=== PATIENT | male | born 1990 | race Caucasian/White ===

== ENCOUNTER 2016-07-20 05:42 | Emergency (ER) | payer BC ==
--- NOTE | 2016-07-20 08:02 | DIAGNOSTIC IMAGING REPORT ---
PROCEDURE: US ABDOMEN ULTRASOUND-LIMITED INDICATION: RUQ PAIN, initial encounter TECHNIQUE: Cunningham scale and color Doppler sonographic images of the abdomen were obtained. COMPARISON: None. FINDINGS: Normal gallbladder and CBD (3 mm. Normal liver. Normal pancreas as visual aorta and IVC are patent. Normal hepatopetal flow. Normal right kidney measures 11.1 cm. IMPRESSION: 1. Negative right upper quadrant ultrasound
--- NOTE | 2016-07-20 08:18 | ED CLINICAL REPORT ---
Clinical Report - Physicians/Mid Levels [facility] [address] [place] [address] 07/20/2016 5:46 Patient: ANGEL IGLESIAS Time Seen: 06:02. Arrived- By private vehicle. Historian- patient. HISTORY OF PRESENT ILLNESS Chief Complaint: ABDOMINAL PAIN. This started last night and is still present. It was abrupt in onset and has been intermittent and waxing/waning. At its maximum, severity described as 8 / 10. When seen in the E.D., severity described as 6 / 10. Modifying factors. Not worsened by anything. Not relieved by anything. It is described as "pulsing" and it is described as located in the right upper quadrant and radiating to the upper back. No nausea, loss of appetite, vomiting or diarrhea. Similar symptoms previously: None. REVIEW OF SYSTEMS No constipation, black stools, difficulty with urination, pain with urination or urinary frequency. No bloody stools. Last bowel movement: yesterday. All systems otherwise negative, except as recorded above. PAST HISTORY PCP - None. Medications: None. Allergies: No Known Drug Allergy. SOCIAL HISTORY Never smoker. Occasional alcohol use. No drug use. FAMILY HISTORY Hypertension in first-degree relative (father). ADDITIONAL NOTES The nursing notes have been reviewed. PHYSICAL EXAM Vital Signs: 07/20/2016 05:57 BP: 132/75. HR: 73. RR: 16. O2 saturation: 99%. Temp: 98.2 F. Have been reviewed. Appearance: Alert. Eyes: Pupils equal, round and reactive to light. ENT: Pharynx normal. Neck: Normal inspection. Neck supple. CVS: Normal heart rate and rhythm. Heart sounds normal. Respiratory: No respiratory distress. Breath sounds normal. Abdomen: Soft and nontender. Bowel sounds normal. No organomegaly. No mass. Back: Normal inspection. Skin: Skin warm and dry. Normal skin color. Normal skin turgor. Extremities: Extremities exhibit normal ROM. No lower extremity edema. Neuro: No motor deficit. No sensory deficit. LABS, X-RAYS, AND EKG Abdominal Sonogram: No acute changes. (discussed with the tattoo technician). The study was independently viewed by me. Laboratory Tests: UA-Culture if indicated: (OLLIE: 07/20/2016 06:18) ( MsgRcvd 07/20/2016 06:33) Final results Test Result Flag Units (Reference) URINE COLOR YELLOW URINE APPEARANCE CLEAR URINE GLUCOSE NEGATIVE (NEGATIVE) URINE BILIRUBIN NEGATIVE (NEGATIVE) URINE KETONE NEGATIVE (NEGATIVE) URINE SPECIFIC GRAVITY 1.020 (1.010-1.030) URINE PH 6.5 (5.0-8.0) URINE PROTEIN NEGATIVE (NEGATIVE) URINE UROBILINOGEN 1.0 EU/dL (0.2-1.0) URINE NITRITE NEGATIVE (NEGATIVE) URINE BLOOD NEGATIVE (NEGATIVE) URINE LEUK ESTERASE NEGATIVE (NEGATIVE) URINE RBC 0-1 rbc/hpf (0-1) URINE WBC 0-1 wbc/hpf (0-1) URINE EPITHELIAL CELLS 0-1 EPI/hpf (0-5) URINE BACTERIA NONE SEEN (NONE SEEN) URINE COMMENT CULT NOT INDICATED URINE CULTURES ARE SET-UP BASED ON THE FOLLOWING CRITERIA:POSITIVE NITRITEPOSITIVE LEUKOCYTE ESTERASEGREATER THAN 10 WHITE BLOOD CELLSMODERATE (2+) OR GREATER BACTERIA CBC w Diff: (OLLIE: 07/20/2016 06:02) ( MsgRcvd 07/20/2016 06:22) Final results Test Result Flag Units (Reference) WHITE BLOOD COUNT 7.7 K/uL (4.5-11.5) RED BLOOD COUNT 5.43 M/uL (4.50-5.90) HEMOGLOBIN 16.8 gm/dL (13.5-17.5) HEMATOCRIT 49.2 % (41.0-53.0) MEAN CELL VOLUME 91 fL (80-100) MEAN CORPUSCULAR HGB 31 pg (26-34) MEAN CORPUSCULAR HGB CONC 34 g/dL (31-37) RED CELL DISTRIBUTION WIDTH 11.7 % (11.6-14.8) PLATELET COUNT 231 K/uL (150-400) NEUTROPHIL % 63.6 % (50-75) LYMPH % 25.7 % (25-40) MONO % 7.6 % (3-14) EOSINOPHIL % 2.8 % (0-4) BASOPHIL % 0.3 % (0-2) CMP: (OLLIE: 07/20/2016 06:02) ( MsgRcvd 07/20/2016 06:33) Final results Test Result Flag Units (Reference) GLUCOSE 106 mg/dL (70-110) BUN 13 mg/dL (7-18) CREATININE 1.0 mg/dL (0.6-1.3) Estimated GFR >60 mL/min Estimated GFR- >60 mL/min Note: Persistent reduction over 3 months in eGFR<60 mL/min/1.73 m2 defines CKD. Patients with eGFR values>=60 mL/min/1.73 m2 may also have CKD if evidence ofpersistent proteinuria. Additional information may be foundat [email or web address]. SODIUM 142 mmol/L (136-145) POTASSIUM 4.2 mmol/L (3.5-5.1) CHLORIDE 103 mmol/L (98-107) CARBON DIOXIDE 28 mmol/L (21-32) CALCIUM 9.3 mg/dL (8.5-10.1) TOTAL PROTEIN 7.8 g/dL (6.4-8.2) ALBUMIN 4.5 g/dL (3.3-5.0) BILIRUBIN, TOTAL 1.2 H mg/dL (0.0-1.0) ALKALINE PHOSPHATASE 56 U/L (46-116) AST (SGOT) 15 U/L (15-37) ALT (SGPT) 35 U/L (12-78) LIPASE 159 U/L (73-393) AMYLASE 72 U/L (25-115) . PROGRESS AND PROCEDURES Patient/family counseled. Old medical records ordered. Old records unavailable. Disposition: Discharged. Condition: stable. CLINICAL IMPRESSION Acute abdominal pain of unknown cause. Abnormal liver function test: total bilirubin. INSTRUCTIONS No driving or operating machinery while taking medication. Drink plenty of fluids. Warnings: Further evaluation is necessary. GENERAL WARNINGS: Return or contact your physician immediately if your condition worsens or changes unexpectedly, if not improving as expected, or if other problems arise. Prescription Medications: Ultram 50 mg tablets: take 1-2 orally every 6 hours as needed for pain. Dispense twenty (20). No refills. Substitution is permissible. Follow-up: Return to the emergency department if not able to be seen at the [facility] as discussed. tomorrow. Understanding of the discharge instructions verbalized by patient. Follow-up with: [facility], , , [address], , [place], [id number] Follow up tomorrow. Call for an appointment. (Electronically signed by Brent Alfaro MD 07/28/2016 11:45)
--- NOTE | 2016-07-20 08:18 | ED NURSING NOTES ---
Clinical Report - Nurses [facility] [address] [place] [address] 07/20/2016 5:46 [id number] Triage time 0558. Chief Complaint: ABDOMINAL PAIN. --06:01 Terence Luo R.N. 05:57 07/20/16. BP: 132/75. HR: 73. RR: 16. O2 saturation: 99%. Temp: 98.2 F. Pain level now 510. --06:01 Terence Luo R.N. Weight: 81.6 kg stated. Height/Length: 71 inches Per Patient. BMI: 25.1. --06:00 Terence Luo R.N. Medications None. --05:59 Terence Luo R.N. Allergies No Known Drug Allergy. --05:59 Terence Luo R.N. History Arrived by private vehicle. Historian: significant other and patient. Accompanied by friend. This started last night. He has had abdominal pain. ( 8/10 pain earlier this am). 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 SOCIAL HX: Never smoker. Alcohol use; consumes beer weekly and liquor weekly. FALL RISK ASSESSMENT: Fall risk assessment completed. No fall risk identified. NUTRITIONAL RISK ASSESSMENT: The nutritional risk assessment revealed no deficiencies. FUNCTIONAL ASSESSMENT: Functional assessment: no impairments noted. LEARNING NEEDS ASSESSMENT: The learning needs assessment revealed no barriers. SKIN INTEGRITY ASSESSMENT: Skin integrity risk assessment completed. No skin integrity risk identified. --06:01 Terence Luo R.N. Last oral intake by patient was dinner (1900). --06:02 Terence Luo R.N. ( last bm 2100.). --06:02 Terence Luo R.N. Interventions ID band on patient. --06:01 Terence Luo R.N. PHYSICAL ASSESSMENT GENERAL / NEURO / PSYCH: Alert. Oriented X 4. Appears in no acute distress. HEENT: Mucous membranes are pink. RESPIRATORY: Respirations not labored. CVS: Capillary refill less than 2 seconds. GI / : Abdomen soft and nontender. SKIN: Skin is warm and dry. --06:03 Terence Luo R.N. Ambulatory to room. Patient gowned. --06:03 Terence Luo R.N. NURSING PROGRESS NOTES Patient gowned. Head of bed elevated. Reassurance given. Patient identifiers checked. Call light placed in reach. Bed placed in lowest position. Brakes of bed on. --06:03 Terence Luo R.N. 06:04 07/20/2016 Site #1 started via IV in the left with an 20g angiocath, with aseptic technique and good blood return; one attempt. Blood drawn: rainbow set. Labeled in the presence of the patient and sent to the lab. Saline lock flushed with saline. --06:04 Terence Luo R.N. 06:33 07/20/2016 Started bag #1 1000 mL IV Fluids IV NS (Saline); bolus of 1000 mL over 5 hour(s) then at 1000 mL/hr via site #1. Allergies verified and confirmed 5 rights. IV patency established. IV site checked: no pain, redness, or swelling. IV flushed thoroughly pre- and post-medication administration. --06:48 Terence Luo R.N. 07:00 07/20/16. Care transferred and report received. --07:00 Ray Chaney R.N. 07:46 07/20/16. BP: 128/69 (regular adult cuff) taken on the right arm, while lying. HR: 66. RR: 18. O2 saturation: 100% on room air. Pain level now: 11/19. --07:47 Brenda Jasmine R.N. 07:07 07/20/2016 IV Fluids IV NS Discontinued: bag #1 infused. Total amount infused: 1000 mL. IV patency established. IV site checked: no pain, redness, or swelling. IV flushed thoroughly. --11:07 Ray Chaney R.N. 07:28 07/20/16. ( Went to check on patient, U/S tech in room. Will check a little bit later). --07:28 Brenda Jasmine R.N. 07:47 07/20/16. --07:47 Brenda Jasmine R.N. 08:04 07/20/16. Patient and family informed about reason for wait and about plan of care. --08:04 Ray Chaney R.N. 08:05 07/20/16. Informed about plan of care. Patient waiting for (US results). --08:05 Ray Chaney R.N. DISPOSITION / DISCHARGE 08:37 07/20/2016 Site #1 removed upon discharge. Catheter intact. --08:37 Ray Chaney R.N. 08:38 07/20/16. Condition at departure: improved. The goals identified in the patient's plan of care were met. No learning barriers present. Discharge instructions provided and reviewed with the patient. Reviewed warnings. Reviewed medication(s). Treatments reviewed. Patient verbalized understanding. Written instructions provided in Uzbek. The patient was discharged by the physician. He was discharged home and accompanied by family. He left the Emergency Department ambulatory and via private vehicle. Family member driving. FALL RISK ASSESSMENT: Fall risk assessment completed. No fall risk identified. --08:38 Ray Chaney R.N. 08:37 07/20/16. BP: 113/72. HR: 80. RR: 12. O2 saturation: 100% on room air. --08:38 Ray Chaney R.N. 08:38 07/20/16. Departure time: 08:38. --08:38 Ray Chaney R.N. Locked/Released at 07/20/2016 11:08 by Ray Chaney R.N.
--- NOTE | 2016-07-20 08:18 | ED NURSING NOTES ---
Clinical Report - Nurses [facility] [address] [place] [address] 07/20/2016 5:46 [id number] TRI[facility] Triage time 0558. Chief Complaint: ABDOMINAL PAIN. --06:01 Terence Luo R.N. 05:57 07/20/16. BP: 132/75. HR: 73. RR: 16. O2 saturation: 99%. Temp: 98.2 F. Pain level now 510. --06:01 Terence Luo R.N. Weight: 81.6 kg stated. Height/Length: 71 inches Per Patient. BMI: 25.1. --06:00 Terence Luo R.N. Medications None. --05:59 Terence Luo R.N. Allergies No Known Drug Allergy. --05:59 Terence Luo R.N. History Arrived by private vehicle. Historian: significant other and patient. Accompanied by friend. This started last night. He has had abdominal pain. ( 8/10 pain earlier this am). 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 SOCIAL HX: Never smoker. Alcohol use; consumes beer weekly and liquor weekly. FALL RISK ASSESSMENT: Fall risk assessment completed. No fall risk identified. NUTRITIONAL RISK ASSESSMENT: The nutritional risk assessment revealed no deficiencies. FUNCTIONAL ASSESSMENT: Functional assessment: no impairments noted. LEARNING NEEDS ASSESSMENT: The learning needs assessment revealed no barriers. SKIN INTEGRITY ASSESSMENT: Skin integrity risk assessment completed. No skin integrity risk identified. --06:01 Terence Luo R.N. Last oral intake by patient was dinner (1900). --06:02 Terence Luo R.N. ( last bm 2100.). --06:02 Terence Luo R.N. Interventions ID band on patient. --06:01 Terence Luo R.N. PHYSICAL ASSESSMENT GENERAL / NEURO / PSYCH: Alert. Oriented X 4. Appears in no acute distress. HEENT: Mucous membranes are pink. RESPIRATORY: Respirations not labored. CVS: Capillary refill less than 2 seconds. GI / : Abdomen soft and nontender. SKIN: Skin is warm and dry. --06:03 Terence Luo R.N. Ambulatory to room. Patient gowned. --06:03 Terence Luo R.N. NURSING PROGRESS NOTES Patient gowned. Head of bed elevated. Reassurance given. Patient identifiers checked. Call light placed in reach. Bed placed in lowest position. Brakes of bed on. --06:03 Terence Luo R.N. 06:04 07/20/2016 Site #1 started via IV in the left with an 20g angiocath, with aseptic technique and good blood return; one attempt. Blood drawn: rainbow set. Labeled in the presence of the patient and sent to the lab. Saline lock flushed with saline. --06:04 Terence Luo R.N. 06:33 07/20/2016 Started bag #1 1000 mL IV Fluids IV NS (Saline); bolus of 1000 mL over 5 hour(s) then at 1000 mL/hr via site #1. Allergies verified and confirmed 5 rights. IV patency established. IV site checked: no pain, redness, or swelling. IV flushed thoroughly pre- and post-medication administration. --06:48 Terence Luo R.N. 07:00 07/20/16. Care transferred and report received. --07:00 Ray Chaney R.N. 07:46 07/20/16. BP: 128/69 (regular adult cuff) taken on the right arm, while lying. HR: 66. RR: 18. O2 saturation: 100% on room air. Pain level now: 11/19. --07:47 Brenda Jasmine R.N. 07:07 07/20/2016 IV Fluids IV NS Discontinued: bag #1 infused. Total amount infused: 1000 mL. IV patency established. IV site checked: no pain, redness, or swelling. IV flushed thoroughly. --11:07 Ray Chaney R.N. 07:28 07/20/16. ( Went to check on patient, U/S tech in room. Will check a little bit later). --07:28 Brenda Jasmine R.N. 07:47 07/20/16. --07:47 Brenda Jasmine R.N. 08:04 07/20/16. Patient and family informed about reason for wait and about plan of care. --08:04 Ray Chaney R.N. 08:05 07/20/16. Informed about plan of care. Patient waiting for (US results). --08:05 Ray Chaney R.N. DISPOSITION / DISCHARGE 08:37 07/20/2016 Site #1 removed upon discharge. Catheter intact. --08:37 Ray Chaney R.N. 08:38 07/20/16. Condition at departure: improved. The goals identified in the patient's plan of care were met. No learning barriers present. Discharge instructions provided and reviewed with the patient. Reviewed warnings. Reviewed medication(s). Treatments reviewed. Patient verbalized understanding. Written instructions provided in Uzbek. The patient was discharged by the physician. He was discharged home and accompanied by family. He left the Emergency Department ambulatory and via private vehicle. Family member driving. FALL RISK ASSESSMENT: Fall risk assessment completed. No fall risk identified. --08:38 Ray Chaney R.N. 08:37 07/20/16. BP: 113/72. HR: 80. RR: 12. O2 saturation: 100% on room air. --08:38 Ray Chaney R.N. 08:38 07/20/16. Departure time: 08:38. --08:38 Ray Chaney R.N. Locked/Released at 07/20/2016 11:08 by Ray Chaney R.N.
--- NOTE | 2016-07-20 08:18 | ED ORDER SUMMARY ---
..... Patient: ANGEL IGLESIAS OrderSheet [facility] VisitID: [id number] [place] [address] 26y, M Registration Date/Time: 07/20/2016 ORDER SHEET Weight: 81.6 kg (stated) Allergies: No Known Drug Allergy GENERAL ORDERS: CBC w Diff Urgent (06:15 07/20/2016 Angel ALFARO) (Ack 6:19 [place] [facility] Work[place]) (6:25 JBullsharri R.N.) CMP Urgent (06:07/20/2016 Angel ALFARO) (Ack 6:19 [facility] Flow Worker) (6:25 Theresa R.N.) UA-Culture if indicated Urgent (06:07/20/2016 Angel ALFARO) (Ack 6:19 [facility] ER Flow Worker) (6:25 Theresa R.N.) Amylase Urgent (06:07/20/2016 Angel ALFARO) (Ack 6:19 Wil ER Flow Worker) (6:25 JBullard R.N.) Lipase Urgent (06:15 07/20/2016 Angel ALFARO) (Ack 6:19 [facility] ER Flow Worker) (6:25 JESSICAullsharri R.N.) NPO (06:15 07/20/2016 Angel ALFARO) (Ack 6:19 Wil ER Flow Worker) (6:47 JBullard R.N.) US Abdomen Limited (Yes) Urgent (07:10 07/20/2016 Angel ALFARO) (Ack 7:12 [place] [facility] Flow Worker) (7:33 LMuller) MEDICATION ORDERS: IV FLUIDS: IV NS : initial bolus 500 mL (1000 mL/hr), then 125 mL/hr for 4h (NOW); Urgent (06:15 07/20/2016 Angel ALFARO) (6:48 JBullard R.N.) ORDER SHEET NOTES: [Electronically signed by Ray Chaney R.N. (11:08 07/20/2016)] [Electronically signed by Brent Alfaro MD (11:45 07/28/2016)] [Electronically locked/signed by Ray Chaney R.N. (11:08 07/20/2016)[place]
--- NOTE | 2016-07-20 08:18 | ED ORDER SUMMARY ---
..... Patient: ANGEL IGLESIAS OrderSheet [facility] VisitID: [id number] [place] [address] 26y, M Registration Date/Time: 07/20/2016 ORDER SHEET Weight: 81.6 kg (stated) Allergies: No Known Drug Allergy GENERAL ORDERS: CBC w Diff Urgent (06:15 07/20/2016 Angel ALFARO) (Ack 6:19 [place] [facility] Lsat Instructor) (6:25 JBullsharri R.N.) CMP Urgent (06:07/20/2016 Angel ALFARO) (Ack 6:19 [facility] ER Lsat Instructor) (6:25 Theresa R.N.) UA-Culture if indicated Urgent (06:07/20/2016 Angel ALFARO) (Ack 6:19 [facility] ER Lsat Instructor) (6:25 Theresa R.N.) Amylase Urgent (06:07/20/2016 Angel ALFARO) (Ack 6:19 Wil ER Lsat Instructor) (6:25 JBullard R.N.) Lipase Urgent (06:15 07/20/2016 Angel ALFARO) (Ack 6:19 Wil ER Lsat Instructor) (6:25 JESSICAullsharri R.N.) NPO (06:15 07/20/2016 Angel ALFARO) (Ack 6:19 [facility] ER Lsat Instructor) (6:47 JBullard R.N.) US Abdomen Limited (Yes) Urgent (07:10 07/20/2016 Angel ALFARO) (Ack 7:12 [place] [facility] Lsat Instructor) (7:33 LMuller) MEDICATION ORDERS: IV FLUIDS: IV NS : initial bolus 500 mL (1000 mL/hr), then 125 mL/hr for 4h (NOW); Urgent (06:15 07/20/2016 Angel ALFARO) (6:48 JBullard R.N.) ORDER SHEET NOTES: [Electronically signed by Ray Chaney R.N. (11:08 07/20/2016)] [Electronically signed by Brent Alfaro MD (11:45 07/28/2016)] [Electronically locked/signed by Ray Chaney R.N. (11:08 07/20/2016)[place]
--- NOTE | 2016-07-20 08:18 | ED CLINICAL REPORT ---
Clinical Report - Physicians/Mid Levels [facility] [address] [place] [address] 07/20/2016 5:46 Patient: ANGEL IGLESIAS Time Seen: 06:02. Arrived- By private vehicle. Historian- patient. HISTORY OF PRESENT ILLNESS Chief Complaint: ABDOMINAL PAIN. This started last night and is still present. It was abrupt in onset and has been intermittent and waxing/waning. At its maximum, severity described as 8 / 10. When seen in the E.D., severity described as 6 / 10. Modifying factors. Not worsened by anything. Not relieved by anything. It is described as "pulsing" and it is described as located in the right upper quadrant and radiating to the upper back. No nausea, loss of appetite, vomiting or diarrhea. Similar symptoms previously: None. REVIEW OF SYSTEMS No constipation, black stools, difficulty with urination, pain with urination or urinary frequency. No bloody stools. Last bowel movement: yesterday. All systems otherwise negative, except as recorded above. PAST HISTORY PCP - None. Medications: None. Allergies: No Known Drug Allergy. SOCIAL HISTORY Never smoker. Occasional alcohol use. No drug use. FAMILY HISTORY Hypertension in first-degree relative (father). ADDITIONAL NOTES The nursing notes have been reviewed. PHYSICAL EXAM Vital Signs: 07/20/2016 05:57 BP: 132/75. HR: 73. RR: 16. O2 saturation: 99%. Temp: 98.2 F. Have been reviewed. Appearance: Alert. Eyes: Pupils equal, round and reactive to light. ENT: Pharynx normal. Neck: Normal inspection. Neck supple. CVS: Normal heart rate and rhythm. Heart sounds normal. Respiratory: No respiratory distress. Breath sounds normal. Abdomen: Soft and nontender. Bowel sounds normal. No organomegaly. No mass. Back: Normal inspection. Skin: Skin warm and dry. Normal skin color. Normal skin turgor. Extremities: Extremities exhibit normal ROM. No lower extremity edema. Neuro: No motor deficit. No sensory deficit. LABS, X-RAYS, AND EKG Abdominal Sonogram: No acute changes. (discussed with the supply tech). The study was independently viewed by me. Laboratory Tests: UA-Culture if indicated: (OLLIE: 07/20/2016 06:18) ( MsgRcvd 07/20/2016 06:33) Final results Test Result Flag Units (Reference) URINE COLOR YELLOW URINE APPEARANCE CLEAR URINE GLUCOSE NEGATIVE (NEGATIVE) URINE BILIRUBIN NEGATIVE (NEGATIVE) URINE KETONE NEGATIVE (NEGATIVE) URINE SPECIFIC GRAVITY 1.020 (1.010-1.030) URINE PH 6.5 (5.0-8.0) URINE PROTEIN NEGATIVE (NEGATIVE) URINE UROBILINOGEN 1.0 EU/dL (0.2-1.0) URINE NITRITE NEGATIVE (NEGATIVE) URINE BLOOD NEGATIVE (NEGATIVE) URINE LEUK ESTERASE NEGATIVE (NEGATIVE) URINE RBC 0-1 rbc/hpf (0-1) URINE WBC 0-1 wbc/hpf (0-1) URINE EPITHELIAL CELLS 0-1 EPI/hpf (0-5) URINE BACTERIA NONE SEEN (NONE SEEN) URINE COMMENT CULT NOT INDICATED URINE CULTURES ARE SET-UP BASED ON THE FOLLOWING CRITERIA:POSITIVE NITRITEPOSITIVE LEUKOCYTE ESTERASEGREATER THAN 10 WHITE BLOOD CELLSMODERATE (2+) OR GREATER BACTERIA CBC w Diff: (OLLIE: 07/20/2016 06:02) ( MsgRcvd 07/20/2016 06:22) Final results Test Result Flag Units (Reference) WHITE BLOOD COUNT 7.7 K/uL (4.5-11.5) RED BLOOD COUNT 5.43 M/uL (4.50-5.90) HEMOGLOBIN 16.8 gm/dL (13.5-17.5) HEMATOCRIT 49.2 % (41.0-53.0) MEAN CELL VOLUME 91 fL (80-100) MEAN CORPUSCULAR HGB 31 pg (26-34) MEAN CORPUSCULAR HGB CONC 34 g/dL (31-37) RED CELL DISTRIBUTION WIDTH 11.7 % (11.6-14.8) PLATELET COUNT 231 K/uL (150-400) NEUTROPHIL % 63.6 % (50-75) LYMPH % 25.7 % (25-40) MONO % 7.6 % (3-14) EOSINOPHIL % 2.8 % (0-4) BASOPHIL % 0.3 % (0-2) CMP: (OLLIE: 07/20/2016 06:02) ( MsgRcvd 07/20/2016 06:33) Final results Test Result Flag Units (Reference) GLUCOSE 106 mg/dL (70-110) BUN 13 mg/dL (7-18) CREATININE 1.0 mg/dL (0.6-1.3) Estimated GFR >60 mL/min Estimated GFR- >60 mL/min Note: Persistent reduction over 3 months in eGFR<60 mL/min/1.73 m2 defines CKD. Patients with eGFR values>=60 mL/min/1.73 m2 may also have CKD if evidence ofpersistent proteinuria. Additional information may be foundat [email or web address].org. SODIUM 142 mmol/L (136-145) POTASSIUM 4.2 mmol/L (3.5-5.1) CHLORIDE 103 mmol/L (98-107) CARBON DIOXIDE 28 mmol/L (21-32) CALCIUM 9.3 mg/dL (8.5-10.1) TOTAL PROTEIN 7.8 g/dL (6.4-8.2) ALBUMIN 4.5 g/dL (3.3-5.0) BILIRUBIN, TOTAL 1.2 H mg/dL (0.0-1.0) ALKALINE PHOSPHATASE 56 U/L (46-116) AST (SGOT) 15 U/L (15-37) ALT (SGPT) 35 U/L (12-78) LIPASE 159 U/L (73-393) AMYLASE 72 U/L (25-115) . PROGRESS AND PROCEDURES Patient/family counseled. Old medical records ordered. Old records unavailable. Disposition: Discharged. Condition: stable. CLINICAL IMPRESSION Acute abdominal pain of unknown cause. Abnormal liver function test: total bilirubin. INSTRUCTIONS No driving or operating machinery while taking medication. Drink plenty of fluids. Warnings: Further evaluation is necessary. GENERAL WARNINGS: Return or contact your physician immediately if your condition worsens or changes unexpectedly, if not improving as expected, or if other problems arise. Prescription Medications: Ultram 50 mg tablets: take 1-2 orally every 6 hours as needed for pain. Dispense twenty (20). No refills. Substitution is permissible. Follow-up: Return to the emergency department if not able to be seen at the [facility] as discussed. tomorrow. Understanding of the discharge instructions verbalized by patient. Follow-up with: [facility], , , [address], , [place], [id number] Follow up tomorrow. Call for an appointment. (Electronically signed by Brent Alfaro MD 07/28/2016 11:45)
--- NOTE | 2016-07-28 11:45 | ED DISCHARGE INSTRUCTIONS ---
Patient: ANGEL IGLESIAS General Instructions [facility] VisitID: [id number] [address] [place] [address] 26y, M Registration Date/Time: 07/20/2016 Acute abdominal pain of unknown cause. Abnormal liver function test: total bilirubin. INSTRUCTIONS No driving or operating machinery while taking medication. Drink plenty of fluids. Warnings: Further evaluation is necessary. GENERAL WARNINGS: Return or contact your physician immediately if your condition worsens or changes unexpectedly, if not improving as expected, or if other problems arise. Prescription Medications: Ultram 50 mg tablets: take 1-2 orally every 6 hours as needed for pain. Dispense twenty (20). No refills. Substitution is permissible. Follow-up: Return to the emergency department if [facility] tomorrow. Understanding of the discharge instructions verbalized by patient. Follow-up with: [facility], , , [address], [place], [address] Follow up tomorrow. Call for an appointment. ADDITIONAL INFORMATION Abdominal Pain,Uncertain Cause [Male] Based on your visit today, the exact cause of your abdominalpain is not clear. Your exam and tests do not indicate a dangerous cause at this time. However, the signs of a serious problem may take more time to appear. Although your evaluation was reassuring today, sometimes early in the course of many conditions, exam and lab tests can appear normal. Therefore, it is important for you to watch for any new symptoms or worsening of your condition. Causes It may not be obvious what caused your symptoms. Pay attention to things that do seem to make your symptoms worse or better and discuss this with your doctor when you follow up. Diagnosis The evaluation of abdominal pain in the emergency department may onlyrequire an exam by the doctor or it may include blood, urine or imaging studies, depending on many factors. Sometimes exams and tests can identify a cause but in many cases, a clear cause is not found. Further testing at follow up visits may help to suggest a clear diagnosis. Home Care Rest as much as possible until your next exam. Try to avoid any medications (unless otherwise directed by your doctor), foods, activities, or other factors that you may have contributed to your symptoms. Try to eat foods that you know that you have tolerated well in the past. Certain diets may be recommended for some conditions that cause abdominal pain. However, since the cause of your symptoms may not be clear, discuss your diet more with your primary care provider or specialist for further recommendations. Eating several small meals per day as opposed to 2 or 3 larger meals may help. Monitor closely for anything that may make your symptoms worse or better. Pay close attention to symptoms below that may indicate worsening of your condition. Follow Up and Precautions See your doctoras instructed or sooneror if your symptoms are not improving.In some cases, you may need more testing. When to Seek Medical Attention Contact your doctor or see medical attention ifany of the following occur: Pain is becoming worse You are unable to take your medications due to excessive vomiting Swelling of the abdomen Fever of 100.4F (38C) or higher, or as directed by your health care provider Blood in vomit or bowel movements (dark red or black color) Jaundice (yellow color of eyes and skin) New onset of weakness, dizziness or fainting New onset of chest, arm, back, neck or jaw pain Tramadol Hydrochloride Oral tablet What is this medicine? TRAMADOL (TRA ma dole) is a pain reliever. It is used to treat moderate to severe pain in adults. How should I use this medicine? Take this medicine by mouth with a full glass of water. Follow the directions on the prescription label. If the medicine upsets your stomach, take it with food or milk. Do not take more medicine than you are told to take. Talk to your superintendent tests regarding the use of this medicine in children. Special care may be needed. What side effects may I notice from receiving this medicine? Side effects that you should report to your doctor or health respiratory care instructor as soon as possible: allergic reactions like skin rash, itching or hives, swelling of the face, lips, or tongue breathing difficulties, wheezing confusion itching light headedness or fainting spells redness, blistering, peeling or loosening of the skin, including inside the mouth seizures Side effects that usually do not require medical attention (report to your doctor or health respiratory care instructor if they continue or are bothersome): constipation dizziness drowsiness headache nausea, vomiting What may interact with this medicine? Do not take this medicine with any of the following medications: MAOIs like Carbex, Eldepryl, Marplan, Nardil, and Parnate This medicine may also interact with the following medications: alcohol or medicines that contain alcohol antihistamines benzodiazepines bupropion carbamazepine or oxcarbazepine clozapine cyclobenzaprine digoxin furazolidone linezolid medicines for depression, anxiety, or psychotic disturbances medicines for migraine headache like almotriptan, eletriptan, frovatriptan, naratriptan, rizatriptan, sumatriptan, zolmitriptan medicines for pain like pentazocine, buprenorphine, butorphanol, meperidine, nalbuphine, and propoxyphene medicines for sleep muscle relaxants naltrexone phenobarbital phenothiazines like perphenazine, thioridazine, chlorpromazine, mesoridazine, fluphenazine, prochlorperazine, promazine, and trifluoperazine procarbazine warfarin What if I miss a dose? If you miss a dose, take it as soon as you can. If it is almost time for your next dose, take only that dose. Do not take double or extra doses. Where should I keep my medicine? Keep out of the reach of children. Store at room temperature between 15 and 30 degrees C (59 and 86 degrees F). Keep container tightly closed. Throw away any unused medicine after the expiration date. What should I tell my health care provider before I take this medicine? They need to know if you have any of these conditions: brain tumor depression drug abuse or addiction head injury if you frequently drink alcohol containing drinks kidney disease or trouble passing urine liver disease lung disease, asthma, or breathing problems seizures or epilepsy suicidal thoughts, plans, or attempt; a previous suicide attempt by you or a family member an unusual or allergic reaction to tramadol, codeine, other medicines, foods, dyes, or preservatives or trying to get breast-feeding What should I watch for while using this medicine? Tell your doctor or health respiratory care instructor if your pain does not go away, if it gets worse, or if you have new or a different type of pain. You may develop tolerance to the medicine. Tolerance means that you will need a higher dose of the medicine for pain relief. Tolerance is normal and is expected if you take this medicine for a long time. Do not suddenly stop taking your medicine because you may develop a severe reaction. Your body becomes used to the medicine. This does NOT mean you are addicted. Addiction is a behavior related to getting and using a drug for a non-medical reason. If you have pain, you have a medical reason to take pain medicine. Your doctor will tell you how much medicine to take. If your doctor wants you to stop the medicine, the dose will be slowly lowered over time to avoid any side effects. You may get drowsy or dizzy. Do not drive, use machinery, or do anything that needs mental alertness until you know how this medicine affects you. Do not stand or sit up quickly, especially if you are an older patient. This reduces the risk of dizzy or fainting spells. Alcohol can increase or decrease the effects of this medicine. Avoid alcoholic drinks. You may have constipation. Try to have a bowel movement at least every 2 to 3 days. If you do not have a bowel movement for 3 days, call your doctor or health respiratory care instructor. Your mouth may get dry. Chewing sugarless gum or sucking hard candy, and drinking plenty of water may help. Contact your doctor if the problem does not go away or is severe. You have been given the following additional information: Abdominal Pain, Unknown Cause, (Male) Tramadol Hydrochloride Oral tablet No driving or operating machinery while taking medication. (Electronically signed by Brent Alfaro MD 07/28/2016 11:45)
--- NOTE | 2016-07-28 11:45 | ED MED RECONCILIATION SUMMARY ---
Patient: ANGEL IGLESIAS Medication Reconciliation Report [facility] VisitID: [id number] [address] [place] [address] 26y, M Registration Date/Time: 07/20/2016 Weight: 81.6 kg Height/Length: 71 in. BMI: 25.1 ALLERGIES: No Known Drug Allergy The patient's Home Medications are listed below: NONE. The source(s) of the original Home Medication information: Not obtained. The following Medications were given to the patient in the Emergency Department: IV NS IV Fluids bolus 1000 mL over 5 hour(s), then 1000 mL/hr, administered: 07/20/2016 6:33:00 AM The following Medications were prescribed to the patient: Ultram 50 mg tablets: take 1-2 orally every 6 hours as needed for pain. Dispense twenty (20). No refills. Substitution is permissible. -- Brent Alfaro MD
--- NOTE | 2016-07-28 11:45 | ED MED RECONCILIATION SUMMARY ---
Patient: ANGEL IGLESIAS Medication Reconciliation Report [facility] VisitID: [id number] [address] [place] [address] 26y, M Registration Date/Time: 07/20/2016 Weight: 81.6 kg Height/Length: 71 in. BMI: 25.1 ALLERGIES: No Known Drug Allergy The patient's Home Medications are listed below: NONE. The source(s) of the original Home Medication information: Not obtained. The following Medications were given to the patient in the Emergency Department: IV NS IV Fluids bolus 1000 mL over 5 hour(s), then 1000 mL/hr, administered: 07/20/2016 6:33:00 AM The following Medications were prescribed to the patient: Ultram 50 mg tablets: take 1-2 orally every 6 hours as needed for pain. Dispense twenty (20). No refills. Substitution is permissible. -- Brent Alfaro MD
--- NOTE | 2016-07-28 11:45 | ED DISCHARGE INSTRUCTIONS ---
Patient: ANGEL IGLESIAS General Instructions [facility] VisitID: [id number] [address] [place] [address] 26y, M Registration Date/Time: 07/20/2016 Acute abdominal pain of unknown cause. Abnormal liver function test: total bilirubin. INSTRUCTIONS No driving or operating machinery while taking medication. Drink plenty of fluids. Warnings: Further evaluation is necessary. GENERAL WARNINGS: Return or contact your physician immediately if your condition worsens or changes unexpectedly, if not improving as expected, or if other problems arise. Prescription Medications: Ultram 50 mg tablets: take 1-2 orally every 6 hours as needed for pain. Dispense twenty (20). No refills. Substitution is permissible. Follow-up: Return to the emergency department if not able to be seen at the [facility] as discussed. tomorrow. Understanding of the discharge instructions verbalized by patient. Follow-up with: [facility], , , [address], [place], [address] Follow up tomorrow. Call for an appointment. ADDITIONAL INFORMATION Abdominal Pain,Uncertain Cause [Male] Based on your visit today, the exact cause of your abdominalpain is not clear. Your exam and tests do not indicate a dangerous cause at this time. However, the signs of a serious problem may take more time to appear. Although your evaluation was reassuring today, sometimes early in the course of many conditions, exam and lab tests can appear normal. Therefore, it is important for you to watch for any new symptoms or worsening of your condition. Causes It may not be obvious what caused your symptoms. Pay attention to things that do seem to make your symptoms worse or better and discuss this with your doctor when you follow up. Diagnosis The evaluation of abdominal pain in the emergency department may onlyrequire an exam by the doctor or it may include blood, urine or imaging studies, depending on many factors. Sometimes exams and tests can identify a cause but in many cases, a clear cause is not found. Further testing at follow up visits may help to suggest a clear diagnosis. Home Care Rest as much as possible until your next exam. Try to avoid any medications (unless otherwise directed by your doctor), foods, activities, or other factors that you may have contributed to your symptoms. Try to eat foods that you know that you have tolerated well in the past. Certain diets may be recommended for some conditions that cause abdominal pain. However, since the cause of your symptoms may not be clear, discuss your diet more with your primary care provider or specialist for further recommendations. Eating several small meals per day as opposed to 2 or 3 larger meals may help. Monitor closely for anything that may make your symptoms worse or better. Pay close attention to symptoms below that may indicate worsening of your condition. Follow Up and Precautions See your doctoras instructed or sooneror if your symptoms are not improving.In some cases, you may need more testing. When to Seek Medical Attention Contact your doctor or see medical attention ifany of the following occur: Pain is becoming worse You are unable to take your medications due to excessive vomiting Swelling of the abdomen Fever of 100.4F (38C) or higher, or as directed by your health care provider Blood in vomit or bowel movements (dark red or black color) Jaundice (yellow color of eyes and skin) New onset of weakness, dizziness or fainting New onset of chest, arm, back, neck or jaw pain Tramadol Hydrochloride Oral tablet What is this medicine? TRAMADOL (TRA ma dole) is a pain reliever. It is used to treat moderate to severe pain in adults. How should I use this medicine? Take this medicine by mouth with a full glass of water. Follow the directions on the prescription label. If the medicine upsets your stomach, take it with food or milk. Do not take more medicine than you are told to take. Talk to your endoscopic technician regarding the use of this medicine in children. Special care may be needed. What side effects may I notice from receiving this medicine? Side effects that you should report to your doctor or health janitor caretaker as soon as possible: allergic reactions like skin rash, itching or hives, swelling of the face, lips, or tongue breathing difficulties, wheezing confusion itching light headedness or fainting spells redness, blistering, peeling or loosening of the skin, including inside the mouth seizures Side effects that usually do not require medical attention (report to your doctor or health janitor caretaker if they continue or are bothersome): constipation dizziness drowsiness headache nausea, vomiting What may interact with this medicine? Do not take this medicine with any of the following medications: MAOIs like Carbex, Eldepryl, Marplan, Nardil, and Parnate This medicine may also interact with the following medications: alcohol or medicines that contain alcohol antihistamines benzodiazepines bupropion carbamazepine or oxcarbazepine clozapine cyclobenzaprine digoxin furazolidone linezolid medicines for depression, anxiety, or psychotic disturbances medicines for migraine headache like almotriptan, eletriptan, frovatriptan, naratriptan, rizatriptan, sumatriptan, zolmitriptan medicines for pain like pentazocine, buprenorphine, butorphanol, meperidine, nalbuphine, and propoxyphene medicines for sleep muscle relaxants naltrexone phenobarbital phenothiazines like perphenazine, thioridazine, chlorpromazine, mesoridazine, fluphenazine, prochlorperazine, promazine, and trifluoperazine procarbazine warfarin What if I miss a dose? If you miss a dose, take it as soon as you can. If it is almost time for your next dose, take only that dose. Do not take double or extra doses. Where should I keep my medicine? Keep out of the reach of children. Store at room temperature between 15 and 30 degrees C (59 and 86 degrees F). Keep container tightly closed. Throw away any unused medicine after the expiration date. What should I tell my health care provider before I take this medicine? They need to know if you have any of these conditions: brain tumor depression drug abuse or addiction head injury if you frequently drink alcohol containing drinks kidney disease or trouble passing urine liver disease lung disease, asthma, or breathing problems seizures or epilepsy suicidal thoughts, plans, or attempt; a previous suicide attempt by you or a family member an unusual or allergic reaction to tramadol, codeine, other medicines, foods, dyes, or preservatives or trying to get breast-feeding What should I watch for while using this medicine? Tell your doctor or health janitor caretaker if your pain does not go away, if it gets worse, or if you have new or a different type of pain. You may develop tolerance to the medicine. Tolerance means that you will need a higher dose of the medicine for pain relief. Tolerance is normal and is expected if you take this medicine for a long time. Do not suddenly stop taking your medicine because you may develop a severe reaction. Your body becomes used to the medicine. This does NOT mean you are addicted. Addiction is a behavior related to getting and using a drug for a non-medical reason. If you have pain, you have a medical reason to take pain medicine. Your doctor will tell you how much medicine to take. If your doctor wants you to stop the medicine, the dose will be slowly lowered over time to avoid any side effects. You may get drowsy or dizzy. Do not drive, use machinery, or do anything that needs mental alertness until you know how this medicine affects you. Do not stand or sit up quickly, especially if you are an older patient. This reduces the risk of dizzy or fainting spells. Alcohol can increase or decrease the effects of this medicine. Avoid alcoholic drinks. You may have constipation. Try to have a bowel movement at least every 2 to 3 days. If you do not have a bowel movement for 3 days, call your doctor or health janitor caretaker. Your mouth may get dry. Chewing sugarless gum or sucking hard candy, and drinking plenty of water may help. Contact your doctor if the problem does not go away or is severe. You have been given the following additional information: Abdominal Pain, Unknown Cause, (Male) Tramadol Hydrochloride Oral tablet No driving or operating machinery while taking medication. (Electronically signed by Brent Alfaro MD 07/28/2016 11:45)
--- NOTE | 2016-07-28 11:45 | ED MAR SUMMARY ---
..... Medication Administration Record [facility] [address] [place] [address] Patient: ANGEL IGLESIAS Visit ID: [id number] 26y, M Weight: 81.6 kg Height/Length: 71 in BMI: 25.1 ALLERGIES: No Known Drug Allergy Start 06:33 07/20/2016 Terence Luo RNathalie, Stop 07:07 07/20/2016 Ray Chaney RNathalie Medication Administered: IV NS (SALINE), Dose: IV Fluids, Rate: 1000 mL/hr, Bolus: 1000 mL over 5 hour(s), Dispensed: 1000 mL bag, Site: #1 left. Medication Ordered: IV NS : initial bolus 500 mL (1000 mL/hr), then 125 mL/hr for 4h (NOW); Urgent.
--- NOTE | 2016-07-28 11:45 | ED MAR SUMMARY ---
..... Medication Administration Record [facility] [address] [address] Patient: ANGEL IGLESIAS Visit ID: [id number] 26y, M Weight: 81.6 kg Height/Length: 71 in BMI: 25.1 ALLERGIES: No Known Drug Allergy Start 06:33 07/20/2016 Terence Luo RNathalie, Stop 07:07 07/20/2016 Ray Chaney RNathalie Medication Administered: IV NS (SALINE), Dose: IV Fluids, Rate: 1000 mL/hr, Bolus: 1000 mL over 5 hour(s), Dispensed: 1000 mL bag, Site: #1 left. Medication Ordered: IV NS : initial bolus 500 mL (1000 mL/hr), then 125 mL/hr for 4h (NOW); Urgent.
== END 2016-07-20 08:38 | disposition home or self-care (01) ==
LOC: ED SRH 05:42
DX: R10.11 Right upper quadrant pain (principal); R94.5 Abnormal results of liver function studies
CPT/HCPCS: 90004; 90100; 92235; 92530; 95059